=== PATIENT | female | born 1990 | race Hispanic/Latino ===

== ENCOUNTER 2016-08-14 20:49 | Observation (INO) | payer OTHER ==
[2016-08-14] MEDS ORDERED: Iohexol 240 (50 ml) PO ONE (22:48)
[2016-08-14] MEDS ORDERED: Lactated Ringer's 1,000 ML IV STA (22:50)
[2016-08-14] MEDS ORDERED: Dextrose 5%/Lactated Ringer's 1,000 ML IV SCH (23:00)
[2016-08-14] MEDS ORDERED: Iohexol 240 (50 ml) ONE (23:04)
--- NOTE | 2016-08-14 23:04 | ED PDOC ---
HPI: Abdomen <NickHarjinder - Last Filed: 08/15/16 00:50> Chief Complaint (Provider): abdominal pain History Per: Patient History/Exam Limitations: no limitations Onset/Duration Of Symptoms: Days (2), Persistent Current Symptoms Are (Timing): Constant Severity: Severe Location Of Pain/Discomfort: RLQ, LLQ, Suprapubic Quality Of Discomfort: Sharp Associated Symptoms: Chills, Nausea, Vomiting, Loss Of Appetite. denies: Fever , Diarrhea, Urinary Symptoms, Other (vaginal discharge or bleeding) Exacerbating Factors: Movement, Upright Position Alleviating Factors: None (but patient has not tried any medications for relief) <Rekha Crane - Last Filed: 08/16/16 16:18> Time Seen by Provider: 08/14/16 22:13 Chief Complaint (Nursing): Abdominal Pain Additional Complaint(s): Seen by urgent clinic, udip/preg negative there, told to go to ER for further evaluation LMP 6.18, normal (Rekha Crane) Past Medical History <Harjinder Romero - Last Filed: 08/15/16 00:50> Reviewed: Historical Data, Nursing Documentation, Vital Signs - Medical History PMH: Anxiety, Depression Other PMH: ADHD - Surgical History Other surgeries: Rhinoplasty - Family History Family History: States: No Known Family Hx - Social History Current smoker - smoking cessation education provided: Yes Alcohol: Social (1/week) <Rekha Crane - Last Filed: 08/16/16 16:18> Vital Signs: Last Vital Signs Temp 98.4 F 08/15/16 04:29 Pulse 89 08/15/16 04:29 Resp 18 08/15/16 04:29 BP 95/61 L 08/15/16 04:29 Pulse Ox 100 08/15/16 04:29 - Home Medications Home Medications: Ambulatory Orders Medication Instructions Recorded Acetaminophen with Codeine 1 each PO Q6 #12 tablet 08/15/16 [Tylenol with Codeine #3 Tablet] Ibuprofen [Motrin Tab] 800 mg PO Q6 #30 tab 08/15/16 - Allergies Allergies/Adverse Reactions: Allergies Allergy/AdvReac Type Severity Reaction Status Date / Time No Known Allergies Allergy Verified 08/14/16 22:09 Review of Systems ROS Statement: Except As Marked, All Systems Reviewed And Found Negative (and as per HPI) Constitutional: Positive for: Chills. Negative for: Fever Gastrointestinal: Positive for: Nausea, Vomiting, Abdominal Pain. Negative for : Diarrhea Genitourinary Female: Positive for: Pelvic Pain. Negative for: Dysuria, Frequency, Vaginal Discharge, Vaginal Bleeding <Rekha Crane - Last Filed: 08/16/16 16:18> Physical Exam - Reviewed Nursing Documentation Reviewed: Yes Vital Signs Reviewed: Yes - Physical Exam Appears: Positive for: Non-toxic, In Acute Distress Head Exam: Positive for: ATRAUMATIC, NORMOCEPHALIC Skin: Positive for: Warm, Dry Eye Exam: Positive for: EOMI, PERRL ENT: Negative for: Pharyngeal Erythema, Tonsillar Exudate Neck: Positive for: Painless ROM, Supple Cardiovascular/Chest: Positive for: Regular Rate, Rhythm, Chest Non Tender. Negative for: Murmur Respiratory: Positive for: Normal Breath Sounds. Negative for: Wheezing Gastrointestinal/Abdominal: Positive for: Bowel Sounds, Soft, Tenderness (+ mcburney, +ttp suprapubic R>L). Negative for: Mass, Distended, Guarding, Rebound Back: Positive for: Normal Inspection. Negative for: Vertebral Tenderness Extremity: Positive for: Normal ROM. Negative for: Pedal Edema Lymphatic: Negative for: Adenopathy Neurologic/Psych: Positive for: Alert. Negative for: Motor/Sensory Deficits <Rekha Crane - Last Filed: 08/16/16 16:18> - Laboratory Results Result Diagrams: 08/14/16 23:25 08/14/16 23:25 <Harjinder Romero - Last Filed: 08/15/16 00:50> - Laboratory Results Result Diagrams: 08/15/16 03:30 08/14/16 23:25 - ECG O2 Sat by Pulse Oximetry: 99 <Rekha Crane - Last Filed: 08/16/16 16:18> ED OBSERVATION Date of observation admission: 08/14/16 Time of observation admission: 22:30 <Rekha Crane - Last Filed: 08/16/16 16:18> - Observation admission statement Patient is being placed in observation because:: Time-intesive ER workup and serial abdominal exams (Rekha Crane) - Goals of Observation Goals of observation are:: Rule out/in acute issue for more definitive care, pain control. (Rekha Crane) - Progress Note Progress Note: 2400 Pt's pain moderately controlled with morphine. Stable Endorsed to Dr Romero pending complete ER workup. (Rekha Crane) Disposition - Patient ED Disposition Is Patient to be Admitted: Transfer of Care - Disposition Disposition: Transfer of Care <Harjinder Romero - Last Filed: 08/15/16 00:50> - Patient ED Disposition Is Patient to be Admitted: Transfer of Care - Disposition Disposition: Transfer of Care Disposition Time: 22:30 Patient Signed Over To: Harjinder Romero Handoff Comments: 12am Pending Er workup, reassessment and final disposition <Rekha Crane - Last Filed: 08/16/16 16:18> - Clinical Impression Clinical Impression: Abdominal pain - Disposition Condition: STABLE
[2016-08-14 23:30] LABS: BASO # 0.1 K/uL (0.0-0.2); BASO % 0.5 % (0.0-2.0); EOS # 0.1 K/uL (0.0-0.7); EOS % 1.2 % (0.0-4.0); HEMATOCRIT 33.4 % (34.0-47.0); LYMPH # 2.9 K/uL (1.0-4.3); LYMPH % 26.4 % (20.0-40.0); MEAN CELL VOLUME 89.6 fl (81.0-99.0); MEAN CORPUSCULAR HGB CONC 33.5 g/dL (33.0-37.0); MEAN PLATELET VOLUME 7.7 fl (7.2-11.7); MONO # 0.6 K/uL (0.0-0.8); MONO % 5.5 % (0.0-10.0); NEUT # 7.2 K/uL (1.8-7.0); NEUT % 66.4 % (50.0-75.0); RED CELL DISTRIBUTION WIDTH 12.7 % (11.5-14.5); WHITE BLOOD COUNT 10.9 K/uL (4.8-10.8)
[2016-08-15 00:04] LABS: ALKALINE PHOSPHATASE 59 U/L (38-126); ALT/SGPT 23 U/L (9-52); AST/SGOT 40 U/L (14-36); BLOOD UREA NITROGEN 11 mg/dl (7-17); CALCIUM 9.6 mg/dL (8.4-10.2); CARBON DIOXIDE 22 mmol/L (22-30); CHLORIDE 105 mmol/L (98-107); GFR AFRICAN-AMERICAN > 60; GLUCOSE,RANDOM 84 mg/dL (65-105); LIPASE 26 U/L (23-300); POTASSIUM 4.4 MMOL/L (3.6-5.0); SODIUM 140 mmol/l (132-148); TOTAL PROTEIN 8.3 G/DL (6.3-8.2)
[2016-08-15 00:11] LABS: ALB/GLOB RATIO 1.5 (1.0-2.1)
--- NOTE | 2016-08-15 00:49 | US ---
EXAM: US Pelvis, Transvaginal CLINICAL HISTORY: 26 years old, female; Pain; Pelvic pain; Additional info: R pelvic pain TECHNIQUE: Real-time transvaginal pelvic ultrasound (complete) with image documentation. Transvaginal imaging was used for better evaluation of the endometrium and adnexa. EXAM DATE/TIME: 08/14/2016 10:49 PM COMPARISON: No relevant prior studies available. FINDINGS: The uterus measures 7 x 3 x 4 cm and is normal. The endometrium measures 7 mm. There is a small 1.2 x 1.6 cm complex cyst in the right ovary. The left ovary is normal. Color flow and doppler vascular waveforms were demonstrated to both ovaries. Complex free fluid is noted within the pelvis slightly greater on the right of uncertain etiology possibly due to recent cyst rupture. IMPRESSION: Small complex right ovarian cyst. Complex appearing free fluid. Possible considerations would be recently ruptured ovarian cyst. PID would be possible. Clinical correlation recommended. Please note that I am assuming a negative test.
[2016-08-15] MEDS ORDERED: Iohexol 300 100 ML IJ ONE (01:11)
[2016-08-15] MEDS ORDERED: Sodium Chloride 0.9% 50 ML IV ONE (01:11)
--- NOTE | 2016-08-15 01:14 | ED PDOC ---
"- Laboratory Results Result Diagrams: 08/15/16 03:30 08/14/16 23:25 - ECG O2 Sat by Pulse Oximetry: 99 (RA) Pulse Ox Interpretation: Normal Medical Decision Making Medical Decision Making: Time: 0000 Transfer of Care from Dr. Crane Pending Further Workup 4AM: US IMPRESSION: Small complex right ovarian cyst. Complex appearing free fluid. Possible considerations would be recently ruptured ovarian cyst. PID would be possible. Clinical correlation recommended. Please note that I am assuming a negative test. CALLUM CANELA | Final Radiology Report CONFIDENTIALITY STATEMENT This report is intended only for use by the referring physician, and only in accordance with law. If you received this in error, call [phone]. Page 2 of 2 Thank you for allowing us to participate in the care of your patient. Pt. still c/o of abdominal pain, mild distension, more morphine ordered for patient with adequate pain response, 2nd CBC drawn which showed 1 point drop in CBC. Case discussed with Dr. Brown of [employer] who states that if patient is hemodynamically stable, can be safely discharged with motrin 800mg and strict return precautions, will see patient Wednesday in office. Return precuations discussed with patient: worsening distension, worsening abdominal pain, lightheadendss, dizziness, or any other concerning symptoms. Patient requesting stronger pain medication than NSAIDs, discussed with patient that narcotics have potential for addictive potential and discussed other risks/ benefits/alternatives, patient understands. [place] [employer] searched, patient appears to have chronic benzo and amphetamine rx, no recent narcotic prescription. Will d/c patient home. Scribe Attestation: Documented by Keysha Hilliard, acting as a scribe for Harjinder Romero MD MD Scribe Attestation: All medical record entries made by the Scribe were at my direction and personally dictated by me. I have reviewed the chart and agree that the record accurately reflects my personal performance of the history, physical exam, medical decision making, and the department course for this patient. I have also personally directed, reviewed, and agree with the discharge instructions and disposition. Disposition - Clinical Impression Clinical Impression: Ruptured ovarian cyst - POA Present On Arrival: None - Disposition Disposition: Routine/Home Disposition Time: 04:00 Condition: STABLE"
[2016-08-15 01:16] LABS: PARTIAL THROMBOPLASTIN TIME 26.6 SECONDS (23.3-32.5)
--- NOTE | 2016-08-15 03:21 | CT ---
EXAM: CT Abdomen and Pelvis With Intravenous Contrast CLINICAL HISTORY: 26 years old, female; Pain; Abdominal pain; Localized; Right lower quadrant (rlq); Additional info: Rlq pain TECHNIQUE: Axial computed tomography images of the abdomen and pelvis with intravenous contrast. This CT exam was performed using one or more of the following dose reduction techniques: automated exposure control, adjustment of the mA and/or kV according to patient size, and/or use of iterative reconstruction technique. Coronal and sagittal reformatted images were created and reviewed. CONTRAST: 95 mL of TVAF330 administered intravenously. EXAM DATE/TIME: 08/14/2016 10:48 PM COMPARISON: No relevant prior studies available. FINDINGS: The liver is normal. The spleen is normal. The pancreas is normal. No gallstones. No hydronephrosis or perinephric stranding. The small bowel appears normal. Contrast reaches the mid sigmoid colon. Moderate amount of stool in the distal sigmoid colon. The appendix is identified coronal images 33-43 and axial images 103 -118 (it courses superiorly and medially before descending). It is fairly uniform in diameter measuring 5 mm in width. The proximal appendix fills with contrast however the distal does not. This may be related to timing. There is no wall thickening, wall hyperemia, or stranding to suggest acute inflammatory process. There is a small amount of fluid along the inferior hepatic edge of uncertain etiology. There is a large amount of fluid within the pelvis with Hounsfield units in the high 60s suggesting either blood or possibly pus. The main differential diagnosis for pelvic etiology of the free fluid is ruptured cyst, ruptured ectopic , and PID. There is a small right ovarian cyst corresponding to that seen on ultrasound. There is air in the urinary bladder. IMPRESSION: Complex free fluid in the pelvis with Hounsfield units in the high 60s suggesting either blood or possibly pus. The main differential diagnosis for pelvic etiology of the free fluid is ruptured cyst, ruptured ectopic , and PID. Air in the urinary bladder. Recommend correlation with urinalysis to exclude infectious etiology.
[2016-08-15 04:00] LABS: BASO % 0.4 % (0.0-2.0); EOS # 0.2 K/uL (0.0-0.7); EOS % 1.9 % (0.0-4.0); HEMATOCRIT 30.2 % (34.0-47.0); LYMPH # 4.2 K/uL (1.0-4.3); LYMPH % 37.8 % (20.0-40.0); MEAN CELL VOLUME 89.4 fl (81.0-99.0); MEAN CORPUSCULAR HEMOGLOBIN 30.3 pg (27.0-31.0); MEAN CORPUSCULAR HGB CONC 33.9 g/dL (33.0-37.0); MEAN PLATELET VOLUME 7.3 fl (7.2-11.7); MONO % 8.9 % (0.0-10.0); NEUT # 5.7 K/uL (1.8-7.0); NRBC % 0.1 % (0.0-0.0); RED CELL DISTRIBUTION WIDTH 12.5 % (11.5-14.5); WHITE BLOOD COUNT 11.2 K/uL (4.8-10.8)
[2016-08-15 04:30] VITALS: BP 95/61; PULSE 89; RESP 18; TEMP 98.4
[2016-08-15 04:36] LABS: URINE BILIRUBIN NEGATIVE (NEGATIVE); URINE COLOR YELLOW (YELLOW); URINE GLUCOSE (UA) NEGATIVE (Normal); URINE KETONE NEGATIVE (NEGATIVE)
[2016-08-15 04:37] LABS: RBC URINE 0 /hpf (0-3); URINE BLOOD NEGATIVE (NEGATIVE); URINE LEUKOCYTE ESTERASE TRACE Leu/uL (Negative); URINE PROTEIN NEGATIVE (NEGATIVE); URINE UROBILINOGEN 0.2 mg/dL (0.2-1.0); WBC URINE 2 /hpf (0-5)
[2016-08-16 16:19] VITALS: O2SAT 99
== END 2016-08-15 04:36 | disposition home or self-care (01) ==
LOC: EDSEX 20:49 → H.ER 20:49 → H.EROBSV 22:30
PROVIDERS: ADMIT Emergency Medicine; ATTEND Emergency Medicine
DX: N83.201 Unspecified ovarian cyst, right side (principal); F17.200 Nicotine dependence, unspecified, uncomplicated; F90.9 Attention-deficit hyperactivity disorder, unspecified type; F32.9 Major depressive disorder, single episode, unspecified; F41.9 Anxiety disorder, unspecified

== ENCOUNTER 2017-10-17 20:46 | Emergency (ER) | payer OTHER ==
[2017-10-17 20:53] VITALS: BP 140/88; O2SAT 100
[2017-10-17] MEDS ORDERED: Sodium Chloride 0.9% 1,000 ML IV STA (21:02)
--- NOTE | 2017-10-17 21:39 | ED PDOC ---
HPI: Allergic Reaction Time Seen by Provider: 10/17/17 20:54 Chief Complaint (Nursing): Allergic Reaction Chief Complaint (Provider): Allergic Reaction History Per: Patient History/Exam Limitations: no limitations Onset/Duration Of Symptoms: Days (x1) Current Symptoms Are (Timing): Still Present Additional Complaint(s): 27 y/o female with no significant PMHx presenting for evaluation of jaw pain x1 day. Patient reports pain began shortly after she took an extra dose of Rexulti , an antipsychotic prescribed to her through her psychiatrist. Patient also reports taking Lexapro for depression. Patient says she mistakenly took an extra dose of Rexulti and began to have lockjaw. She describes difficulty moving jaw and discomfort. Patient reports taking Benadryl with mild relief of symptoms by arrival to ED. Patient also noted to be red all over in triage, which she felt may be due to a reaction, but reports being out in the sun. Patient denies taking any other medications. She denies any chest pain, shortness of breath, throat swelling, itching, nausea, or vomiting. PMD: None reported Past Medical History Reviewed: Historical Data, Nursing Documentation, Vital Signs Vital Signs: Last Vital Signs Temp Pulse 100 H 10/17/17 20:50 Resp BP 140/88 10/17/17 20:50 Pulse Ox 100 10/17/17 20:50 - Medical History PMH: Anxiety, Depression - Surgical History Surgical History: No Surg Hx - Family History Family History: States: Unknown Family Hx - Home Medications Home Medications: Ambulatory Orders Medication Instructions Recorded Acetaminophen with Codeine 1 each PO Q6 #12 tablet 08/15/16 [Tylenol with Codeine #3 Tablet] Ibuprofen [Motrin Tab] 800 mg PO Q6 #30 tab 08/15/16 - Allergies Allergies/Adverse Reactions: Allergies Allergy/AdvReac Type Severity Reaction Status Date / Time No Known Allergies Allergy Verified 08/14/16 22:09 Review of Systems ROS Statement: Except As Marked, All Systems Reviewed And Found Negative ENT: Positive for: Other (jaw pain). Negative for: Throat Swelling Cardiovascular: Negative for: Chest Pain Respiratory: Negative for: Shortness of Breath Gastrointestinal: Negative for: Nausea, Vomiting Skin: Positive for: Other (skin redness) Physical Exam - Reviewed Nursing Documentation Reviewed: Yes Vital Signs Reviewed: Yes - Physical Exam Appears: Positive for: Non-toxic, No Acute Distress Head Exam: Positive for: ATRAUMATIC, NORMAL INSPECTION, NORMOCEPHALIC Skin: Negative for: Normal Color (diffuse redness) Eye Exam: Positive for: EOMI, Normal appearance, PERRL ENT: Positive for: Normal ENT Inspection (speaking in full sentences) Neck: Positive for: Normal, Painless ROM, Supple Cardiovascular/Chest: Positive for: Regular Rate, Rhythm. Negative for: Murmur Respiratory: Positive for: Normal Breath Sounds. Negative for: Respiratory Distress Gastrointestinal/Abdominal: Positive for: Normal Exam, Soft. Negative for: Tenderness Back: Positive for: Normal Inspection. Negative for: L CVA Tenderness, R CVA Tenderness, Vertebral Tenderness Extremity: Positive for: Normal ROM. Negative for: Deformity Neurologic/Psych: Positive for: Alert, Oriented (x3) - ECG O2 Sat by Pulse Oximetry: 100 (RA) Pulse Ox Interpretation: Normal - Progress ED Course And Treament: Impression: Medication reaction resolving after self-medication with Benadryl Plan: -Toradol 30mg IVP -1LNS -Reevaluation Scribe Attestation: Documented by Kenneth Grady, acting as a scribe for Tanesha Doan MD. Provider Scribe Attestation: All medical record entries made by the Scribe were at my direction and personally dictated by me. I have reviewed the chart and agree that the record accurately reflects my personal performance of the history, physical exam, medical decision making, and the department course for this patient. I have also personally directed, reviewed, and agree with the discharge instructions and disposition. Disposition - Clinical Impression Clinical Impression: Medication reaction - Patient ED Disposition Is Patient to be Admitted: No Doctor Will See Patient In The: Office Counseled Patient/Family Regarding: Diagnosis, Need For Followup - Disposition Referrals: [facility] Barreto [Outside] [facility] [Outside] Disposition: Routine/Home Disposition Time: 21:40 Condition: STABLE Instructions: Adverse Drug Reactions, Adult (DC) Forms: [employer] [facility] (Malay) - POPrudence Present On Arrival: None
[2017-10-17 21:56] VITALS: PULSE 82; RESP 16
== END 2017-10-17 21:55 | disposition home or self-care (01) ==
LOC: H.ER 20:46
DX: T78.40XA Allergy, unspecified, initial encounter (principal); F41.9 Anxiety disorder, unspecified; F32.9 Major depressive disorder, single episode, unspecified
CPT/HCPCS: 96361; 96374; 99283; J1885; J7030